=== PATIENT | female | born 1945 | race Caucasian/White ===

== ENCOUNTER → 2016-12-27 | Outpatient (CLI) | payer OTHER, MEDICARE ==
[~2016-12-27] MED LIST: MULT-506 PO; PARO1TAB9 PO
--- NOTE | 2016-12-27 14:36 | DIAGNOSTIC IMAGING REPORT ---
LEFT LOWER EXTREMITY WITHOUT HISTORY: 71 years-old Female L FOOT PSEUDARTHROSIS COMPARISON: None available TECHNIQUE: Multiple axial CT images of the left lower extremity were obtained without the use of IV contrast. Coronal and sagittal reformatted images were obtained from the axial data set and worsened for review. A dose lowering technique was used consistent with the principals of SEKOU. FINDINGS: There is dorsal medial fusion hardware involving the medial midfoot fixating the navicular first cuneiform articulation. Evaluation of this articulation is somewhat limited secondary to the streak artifact. There is mild bony fusion along the dorsal aspect of this articulation with overall less than 25% of the total joint demonstrating bony fusion. No evidence of hardware fracture or loosening. Spurring involves both the plantar and Achilles insertion sites about the calcaneus. There is a 3 mm ossified bone fragment adjacent to the anterior process calcaneus suggesting healed fracture fragment. The bones are moderately demineralized throughout. Predominantly mild to moderate degenerative changes are seen throughout the foot, notably involving the mid foot where there are at least moderate general changes involving the tarsal metatarsal joints. Mild first digit MTP joint degenerative changes are present. There is a remote fracture deformity of the distal fifth metatarsal. No acute fracture or dislocation is identified. There is no osteochondral defect of the talar dome identified. 3 mm loose body is noted within the inferior aspect of the medial clear space about the ankle, nicely seen on image 80 of the coronal series. Vascular calcifications are noted. Dystrophic appearing calcifications are noted adjacent to the tibialis posterior tendon which may reflect sequela of remote injury seen on image 144 the axial series. There is thickening of the tibialis anterior tendon suggesting tendinopathy. There is indistinctness of the fibers adjacent to the hardware. No large joint effusion about the ankle. IMPRESSION: 1. Fusion hardware involves the medial midfoot fixating the navicular first cuneiform articulation. There is less than 25% bony fusion of this articulation which is only seen involving the dorsal aspect of the joint space. No evidence of hardware fracture or loosening. 2. No acute bony fracture or dislocation. 3. Remote fracture deformity involves the distal fifth metatarsal. 3 mm bone fragment adjacent to the anterior process calcaneus suggests additional remote fracture. 4. 3 mm loose body noted involving the inferior medial clear space of the ankle. 5. 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 6. Peripheral vascular disease. The above report was generated using voice recognition software. It may contain grammatical, syntax or spelling errors. Electronically signed by: Rolf Goins M.D. 12/27/2016 2:35 PM Dictated Date/Time: 12/27/2016 2:24 PM
== END | disposition home or self-care (01) ==
LOC: C.CTS 13:59
PROVIDERS: ATTEND Podiatrist Foot & Ankle Surgery
DX: G57.42 Lesion of medial popliteal nerve, left lower limb (principal); M24.875 Other specific joint derangements left foot, not elsewhere classified; M77.8 Other enthesopathies, not elsewhere classified

== ENCOUNTER → 2017-05-18 | Outpatient (CLI) | payer OTHER, MEDICARE | END | disposition home or self-care (01) | LOC: C.LABSPEC 17:36 | PROVIDERS: ATTEND Podiatrist Foot & Ankle Surgery | DX: L60.0 Ingrowing nail (principal) ==